=== PATIENT | male | born 2005 | race Caucasian/White ===

== ENCOUNTER 2023-03-02 00:28 | Emergency (ER) | payer OTHER ==
[~2023-03-02] VITALS: Ht 180.3 cm; Wt 90.7 kg
[~2023-03-02 00:28] MED LIST: ONDA4ODT MM
[2023-03-02 07:18] LABS: Bun/Creatinine Ratio 12.4 (12.0-20.0); Creatinine, Blood 0.89 mg/dL (0.60-1.20); Potassium, Blood 4.2 mmol/L (3.5-5.5)
[2023-03-02 07:31] LABS: BASOPHILS ABSOLUTE AUTO 0.19 K/mm3 (0.00-0.23); BASOPHILS PERCENT AUTO 1 % (0-2); EOSINOPHILS ABSOLUTE AUTO 0.32 K/mm3 (0.00-0.68); EOSINOPHILS PERCENT AUTO 2 % (0-6); Hemoglobin 13.4 g/dL (13.5-17.5); IMMATURE GRAN ABSOLUTE AUTO 0.05 K/mm3 (0.00-0.10); IMMATURE GRAN PERCENT AUTO 0 % (0-1); LYMPHOCYTES ABSOLUTE AUTO 3.48 K/mm3 (0.84-5.20); LYMPHOCYTES PERCENT AUTO 23 % (21-46); MONOCYTES ABSOLUTE AUTO 0.94 K/mm3 (0.16-1.47); MONOCYTES PERCENT AUTO 6 % (4-13); Mean Corpuscular HGB 30.2 pg (26.0-34.0); Mean Corpuscular HGB Conc 33.5 g/dL (31.5-36.5); Mean Corpuscular Volume 90 fL (80-100); Mean Platelet Volume 10.4 fL (9.1-12.4); NEUTROPHILS ABSOLUTE AUTO 10.49 K/mm3 (1.96-9.15); NEUTROPHILS PERCENT AUTO 68 % (41-73); Platelet Count 408 K/mm3 (150-400); RDW Coefficient Variation 12.3 % (11.7-14.2); RDW Standard Deviation 40.4 fL (35.1-46.3); Red Blood Cell Count 4.44 M/mm3 (4.30-5.90); White Blood Cell Count 15.47 K/mm3 (4.00-11.30)
[2023-03-02 08:03] VITALS: BP 129/71
== END 2023-03-02 08:19 | disposition home or self-care (01) ==
LOC: ER 00:28
PROVIDERS: Student in an Organized Health Care Education/Training Program
DX: S37.39XA Other injury of urethra, initial encounter (principal); W22.8XXA Striking against or struck by other objects, initial encounter
CPT/HCPCS: 51610; 74420; 76870; 80048; 85025; 96374; 96376; 99284-25; A9270; J1170; Q9963